=== PATIENT | female | born 1965 | race Caucasian/White ===

== ENCOUNTER 2020-12-10 09:30 | Outpatient (RCR) | payer OTHER, BC, SELFPAY ==
[2020-09-29 09:41] VITALS: BMI 35.5
[2020-09-29 09:46] VITALS: BMI 35.5
[2020-12-10 09:39] VITALS: BMI 35.5
== END 2020-12-14 14:47 | disposition home or self-care (01) ==
LOC: ANHDMC 09:30
PROVIDERS: PCP Internal Medicine; Visit Provider Internal Medicine
DX: E11.9 Type 2 diabetes mellitus without complications (principal); Z71.3 Dietary counseling and surveillance; Z71.89 Other specified counseling
CPT/HCPCS: 97802; 97803; G0108

== ENCOUNTER 2021-01-07 08:48 | Outpatient (RCR) | payer OTHER, BC, SELFPAY | END 2021-04-05 13:49 | disposition home or self-care (01) | LOC: ANHDMC 08:48 | PROVIDERS: PCP Internal Medicine; Visit Provider Internal Medicine | DX: E11.9 Type 2 diabetes mellitus without complications (principal); Z71.89 Other specified counseling | CPT/HCPCS: G0108 ==

== ENCOUNTER → 2021-09-11 08:24 | Outpatient (CLI) | payer OTHER, BC, SELFPAY ==
--- NOTE | ~2021-09-11 | MM_ITS ---
EXAMINATION: MM screening [facility] BI w jazmine HISTORY: Screening TECHNIQUE: Craniocaudal and mediolateral oblique 3-D tomosynthesis images were obtained and synthetic 2-D images were generated. CAD analysis was submitted and interpreted. COMPARISON: Comparison to multiple prior studies sequentially, with oldest reviewed study dated 01/19. BREAST PARENCHYMAL COMPOSITION: There are scattered areas of fibroglandular density. FINDINGS: There is no evidence of suspicious mass, calcification, or architectural distortion to sugg est malignancy in either breast. There has been no suspicious interval change. IMPRESSION: 1. No mammographic evidence of malignancy. 2. Recommend routine screening mammography in one year. BI-RADS Category 1: Negative Reviewed, dictated and finalized at location A.
== END ==
PROVIDERS: PCP Internal Medicine; Visit Provider Internal Medicine
DX: Z12.31 Encounter for screening mammogram for malignant neoplasm of breast (principal)
CPT/HCPCS: 77063; 77067

== ENCOUNTER 2024-01-16 14:39 | Outpatient (CLI) | payer BC, SELFPAY ==
--- NOTE | ~2024-01-16 | MR_ITS ---
MRI of the lumbar spine Clinical History: Radiculopathy Technique: Axial T2-weighted images, and sagittal T1-weighted, T2-weighted, and T2 fat-sat images wer e acquired. Findings: There is levoscoliosis. No fracture or subluxation evident. No suspicious bone marrow signa l abnormality seen. At L1-L2, there is severe degenerative spurring. There is mild disc bulge with advanced facet arthrop athy. There is right lateral recess stenosis. No central canal stenosis. There is advanced right neur al foraminal narrowing. Left neural foramen preserved. At L2-L3, there is advanced degenerative disc narrowing. There is disc bulge and advanced facet arthr opathy. No central canal stenosis. There is moderate to advanced right neural foraminal narrowing. Le ft neural foramen preserved. At L3-L4, there is diffuse disc bulge with severe facet arthropathy. No central canal stenosis. There is moderate left neural foraminal narrowing and moderate right neural foraminal narrowing. At L4-L5, there is minimal disc bulge with severe facet arthropathy. No central canal stenosis. There is severe left neural foraminal narrowing. Right neural foramen preserved. At L5-S1, there is severe degenerative disc narrowing. There is minimal disc bulge with moderate to a dvanced facet arthropathy. No central canal stenosis. There is severe left neural foraminal narrowing , and minimal right neural foraminal narrowing. Paravertebral soft tissues are unremarkable. Impression: Levoscoliosis with advanced degenerative spondylitic changes, as detailed above. Reviewed, dictated and finalized at [facility]. Impression: Levoscoliosis with advanced degenerative spondylitic changes, as detailed above .
== END 2024-01-16 14:40 | disposition home or self-care (01) ==
PROVIDERS: PCP Internal Medicine; Visit Provider Internal Medicine
DX: M54.16 Radiculopathy, lumbar region (principal); M41.84 Other forms of scoliosis, thoracic region; M47.817 Spondylosis without myelopathy or radiculopathy, lumbosacral region
CPT/HCPCS: 72148

== ENCOUNTER 2024-03-16 09:47 | Outpatient (CLI) | payer BC, SELFPAY ==
--- NOTE | ~2024-03-16 | MM_ITS ---
EXAMINATION: MM screening [facility] BI w jazmine HISTORY: Screening mammogram, family history of breast cancer in her mother. TECHNIQUE: Craniocaudal and mediolateral oblique 3-D tomosynthesis images were obtained and synthetic 2-D images were generated. CAD analysis was submitted and interpreted. COMPARISON: 09/11/2021 BREAST PARENCHYMAL COMPOSITION:Not Dense. There are scattered areas of fibroglandular density. FINDINGS: No suspicious mass, calcification, or architectural distortion are identified in either enma ast to suggest malignancy. There has been no suspicious interval change. IMPRESSION: No mammographic evidence of malignancy. Recommend routine screening mammography in one year. BI-RADS Category 1: Negative Reviewed, dictated and finalized at location . [employer]
== END 2024-03-16 09:48 | disposition home or self-care (01) ==
LOC: MICIMG 09:48
PROVIDERS: PCP Internal Medicine; Visit Provider Internal Medicine
DX: Z12.31 Encounter for screening mammogram for malignant neoplasm of breast (principal)
CPT/HCPCS: 77063; 77067